=== PATIENT | male | born 1950 | race Caucasian/White ===

== ENCOUNTER 2021-06-30 17:19 | Inpatient (IN) | payer MEDICARE, OTHER ==
[2021-06-30 18:06] LABS: ANION GAP 15.8 mEq/L (7-13); CHLORIDE,CL 101 mmol/L (98-107); SODIUM,NA 137 mmol/L (136-145)
[2021-06-30 18:29] LABS: CORONAVIRUS COVID-19 NAA NEGATIVE (NEGATIVE); RESPIRATORY SYNCYTIAL VIR NAA NEGATIVE (NEGATIVE)
[2021-06-30] MEDS ORDERED: Sodium Chloride 0.9% 1,000 ML IV ONE (20:23)
[2021-06-30] MEDS ORDERED: Iopamidol 612 MG/ML 100 ML Bottle IVPUSH ONE (20:23)
[2021-06-30] MEDS ORDERED: Acetaminophen 325 MG Tab PO ONE (20:40)
[2021-06-30] MEDS ORDERED: 50% Dextrose in Water 50 ML Syringe IVPUSH PRN (21:36)
[2021-06-30] MEDS ORDERED: Sodium Chloride 0.9% 10 ML Syringe FLUSH PRN (21:39)
[2021-06-30] MEDS ORDERED: Ondansetron 4 MG/2 ML SDV IVPUSH PRN (21:39)
[2021-06-30] MEDS ORDERED: Docusate Sodium 100 MG Cap PO PRN (21:39)
[2021-06-30] MEDS ORDERED: Temazepam 15 MG Cap PO PRN (21:39)
[2021-06-30] MEDS ORDERED: Simvastatin 10 MG Tab PO SCH (21:40)
[2021-06-30] MEDS ORDERED: NS + KCl 20mEq/L 1,000 ML IV SCH (21:45)
[2021-06-30] MEDS: Piperacillin/Tazobactam 3.375 GM in Sodium Chloride 0.9% 100 ML IV SCH (21:48)
[2021-06-30] MEDS: Insulin Lispro 100 Units/ML 3 ML Vial SUBCUT SCH (22:35)
[2021-06-30] MEDS: Ciprofloxacin 0.3% Ophth Soln 5 ML Bottle EARRT SCH (22:46)
[2021-06-30] MEDS: Heparin Sodium 5,000 Units/ML Vial SUBCUT SCH (22:47)
[2021-07-01] MEDS: Ciprofloxacin 0.3% Ophth Soln 5 ML Bottle EARRT SCH (04:59)
[2021-07-01] MEDS: Piperacillin/Tazobactam 3.375 GM in Sodium Chloride 0.9% 100 ML IV SCH ×4 (05:06→21:34)
[2021-07-01] MEDS: Heparin Sodium 5,000 Units/ML Vial SUBCUT SCH ×3 (06:08→21:37)
[2021-07-01 07:01] LABS: ANION GAP 14.7 mEq/L (7-13); CHLORIDE,CL 103 mmol/L (98-107); SODIUM,NA 138 mmol/L (136-145)
[2021-07-01] MEDS: Acetaminophen 325 MG Tab PO PRN ×3 (08:09→21:37)
[2021-07-01] MEDS: Lisinopril 10 MG Tab PO SCH (08:10)
[2021-07-01] MEDS: Aspirin 325 MG Tab PO SCH (08:11)
[2021-07-01] MEDS: Cholecalciferol (Vitamin D3) 25 MCG Tab PO SCH (08:11)
[2021-07-01] MEDS: Insulin Lispro 100 Units/ML 3 ML Vial SUBCUT SCH ×4 (08:14→21:41)
[2021-07-01] MEDS ORDERED: NEOMYCIN EARRT SCH (09:00)
[2021-07-01] MEDS ORDERED: COLISTIN EARRT SCH (09:00)
[2021-07-01] MEDS ORDERED: [UNRECOGNIZED DRUG - OTHER] EARRT SCH (09:00)
[2021-07-01] MEDS ORDERED: HYDROCORTISONE EARRT SCH (09:00)
[2021-07-01] MEDS: Sodium Chloride 0.9% 10 ML Syringe FLUSH SCH ×2 (10:56→21:42)
[2021-07-01] MEDS ORDERED: Glucagon,Human Recombinant 1 MG Vial IM PRN (11:16)
[2021-07-01] MEDS ORDERED: 50% Dextrose in Water 50 ML Syringe IVPUSH PRN (11:16)
[2021-07-01] MEDS: Rosuvastatin 10 MG Tab PO SCH (12:12)
[2021-07-01] MEDS: NEOMYCIN EARRT SCH ×2 (14:02→21:37)
[2021-07-01] MEDS: POLYMYXIN B EARRT SCH ×2 (14:02→21:37)
[2021-07-01] MEDS: HYDROCORTISONE EARRT SCH ×2 (14:02→21:37)
[2021-07-01] MEDS: Insulin Glarg,Human.Rec.Analog 100 Unit/ML SUBCUT SCH (21:41)
[2021-07-02] MEDS: Piperacillin/Tazobactam 3.375 GM in Sodium Chloride 0.9% 100 ML IV SCH ×2 (04:32→10:02)
[2021-07-02] MEDS: Heparin Sodium 5,000 Units/ML Vial SUBCUT SCH ×3 (05:49→21:30)
[2021-07-02 06:29] LABS: ANION GAP 13.6 mEq/L (7-13); CHLORIDE,CL 103 mmol/L (98-107); SODIUM,NA 138 mmol/L (136-145)
[2021-07-02] MEDS: Cholecalciferol (Vitamin D3) 25 MCG Tab PO SCH (08:19)
[2021-07-02] MEDS: Aspirin 325 MG Tab PO SCH (08:20)
[2021-07-02] MEDS: Rosuvastatin 10 MG Tab PO SCH (08:20)
[2021-07-02] MEDS: Lisinopril 10 MG Tab PO SCH (08:20)
[2021-07-02] MEDS: Insulin Lispro 100 Units/ML 3 ML Vial SUBCUT SCH ×4 (08:21→21:33)
[2021-07-02] MEDS: POLYMYXIN B EARRT SCH ×3 (08:23→21:30)
[2021-07-02] MEDS: NEOMYCIN EARRT SCH ×3 (08:23→21:30)
[2021-07-02] MEDS: HYDROCORTISONE EARRT SCH ×3 (08:23→21:30)
[2021-07-02] MEDS: Sodium Chloride 0.9% 10 ML Syringe FLUSH SCH ×2 (08:26→23:44)
[2021-07-02] MEDS: metroNIDAZOLE 250 MG Tab PO SCH ×2 (16:55→21:30)
[2021-07-02] MEDS: Ciprofloxacin 500 MG Tab PO SCH ×2 (16:55→21:29)
[2021-07-02] MEDS: Insulin Glarg,Human.Rec.Analog 100 Unit/ML SUBCUT SCH (21:30)
[2021-07-03 06:43] LABS: ANION GAP 15.5 mEq/L (7-13); CHLORIDE,CL 104 mmol/L (98-107); SODIUM,NA 142 mmol/L (136-145)
[2021-07-03] MEDS: Heparin Sodium 5,000 Units/ML Vial SUBCUT SCH (06:55)
[2021-07-03] MEDS: metroNIDAZOLE 250 MG Tab PO SCH (06:55)
[2021-07-03] MEDS: Acetaminophen 325 MG Tab PO PRN (07:06)
[2021-07-03] MEDS: Aspirin 325 MG Tab PO SCH (09:11)
[2021-07-03] MEDS: Lisinopril 10 MG Tab PO SCH (09:11)
[2021-07-03] MEDS: Cholecalciferol (Vitamin D3) 25 MCG Tab PO SCH (09:11)
[2021-07-03] MEDS: Ciprofloxacin 500 MG Tab PO SCH (09:11)
[2021-07-03] MEDS: Rosuvastatin 10 MG Tab PO SCH (09:12)
[2021-07-03] MEDS: HYDROCORTISONE EARRT SCH (09:19)
[2021-07-03] MEDS: POLYMYXIN B EARRT SCH (09:19)
[2021-07-03] MEDS: Insulin Lispro 100 Units/ML 3 ML Vial SUBCUT SCH ×2 (09:19→12:18)
[2021-07-03] MEDS: NEOMYCIN EARRT SCH (09:19)
[2021-07-03] MEDS: Sodium Chloride 0.9% 10 ML Syringe FLUSH SCH (09:21)
== END 2021-07-03 13:00 | disposition home or self-care (01) | DRG 154 ==
LOC: DL.ED 17:19 → DL.MS 20:41
PROVIDERS: ADMIT Internal Medicine; ATTEND Internal Medicine
DX: H60.11 Cellulitis of right external ear (principal); G92.8 Other toxic encephalopathy; E11.9 Type 2 diabetes mellitus without complications; R50.9 Fever, unspecified; R53.83 Other fatigue; H60.501 Unspecified acute noninfective otitis externa, right ear; H60.90 Unspecified otitis externa, unspecified ear; C44.90 Unspecified malignant neoplasm of skin, unspecified; I10 Essential (primary) hypertension; Z79.4 Long term (current) use of insulin; Z85.828 Personal history of other malignant neoplasm of skin; Z79.2 Long term (current) use of antibiotics; Z98.42 Cataract extraction status, left eye; Z98.41 Cataract extraction status, right eye; E78.5 Hyperlipidemia, unspecified; E11.21 Type 2 diabetes mellitus with diabetic nephropathy; Z98.890 Other specified postprocedural states; Z79.84 Long term (current) use of oral hypoglycemic drugs; Z79.82 Long term (current) use of aspirin; Z79.899 Other long term (current) drug therapy; Z20.822 Contact with and (suspected) exposure to COVID-19
CPT/HCPCS: 0241U; 36415; 70450; 71045; 74177; 80048; 80053; 81001; 82150; 82947; 83605; 83690; 83735; 85025; 86140; 87040; 99222; 99232; 99238; 99285; 99285-25; A9270-GY; J1644; J1815-GY; J2543; J3480; J3490; J7030; Q9967

== ENCOUNTER 2022-10-18 21:09 | Emergency (ER) | payer MEDICARE, OTHER, BC ==
[2022-10-18] MEDS ORDERED: Ketorolac 30 MG/ML SDV IM ONE (21:17)
== END 2022-10-18 23:59 | disposition home or self-care (01) ==
LOC: DL.ED 21:09
DX: S22.41XA Multiple fractures of ribs, right side, initial encounter for closed fracture (principal); I10 Essential (primary) hypertension; E78.00 Pure hypercholesterolemia, unspecified; E11.21 Type 2 diabetes mellitus with diabetic nephropathy; E66.9 Obesity, unspecified; M19.90 Unspecified osteoarthritis, unspecified site; Z68.36 Body mass index [BMI] 36.0-36.9, adult; Z79.82 Long term (current) use of aspirin; Z79.899 Other long term (current) drug therapy; Z79.84 Long term (current) use of oral hypoglycemic drugs; W01.0XXA Fall on same level from slipping, tripping and stumbling without subsequent striking against object, initial encounter; Y92.002 Bathroom of unspecified non-institutional (private) residence as the place of occurrence of the external cause
CPT/HCPCS: 71101; 96372; 99284; J1885